=== PATIENT | male | born 1980 | race Two or more races ===

== ENCOUNTER 2020-07-30 12:02 | Emergency (ER) | payer OTHER ==
[~2020-07-30] VITALS: Ht 177.8 cm; Wt 81.6 kg
== END 2020-07-30 15:21 | disposition home or self-care (01) ==
LOC: ER
DX: J40 Bronchitis, not specified as acute or chronic (principal)

== ENCOUNTER 2020-11-08 10:35 | Outpatient (CLI) | payer OTHER | END 2020-11-08 10:39 | disposition home or self-care (01) | LOC: RAD 10:35 | DX: R05 Cough (principal); J20.9 Acute bronchitis, unspecified; A37.90 Whooping cough, unspecified species without pneumonia ==

== ENCOUNTER 2021-04-23 22:54 | Emergency (ER) | payer OTHER ==
[~2021-04-23] VITALS: Ht 177.8 cm; Wt 86.2 kg
[2021-04-24] MEDS ORDERED: PEPCID AC20 MG PO (03:01)
[2021-04-24] MEDS ORDERED: PROTONIX20 MG PO (03:01)
[2021-04-24] MEDS ORDERED: CARAFATE1 GM PO (03:01)
[2021-04-24] MEDS ORDERED: MEDROLPACK PO (03:01)
[2021-05-02] MEDS ORDERED: ACETAMINOPHEN650 M2 (11:39)
== END 2021-04-24 03:28 | disposition home or self-care (01) ==
LOC: ER 22:54
DX: K20.80 Other esophagitis without bleeding (principal); R07.89 Other chest pain

== ENCOUNTER 2021-05-28 09:35 | Outpatient (CLI) | payer OTHER ==
[~2021-05-28 09:35] MED LIST: ACETAMINOPHEN650 M2; CARAFATE1 GM PO; MEDROLPACK PO; PEPCID AC20 MG PO; PROTONIX20 MG PO
== END 2021-05-28 09:41 | disposition home or self-care (01) ==
LOC: SONOGRAMA 09:35
PROVIDERS: ATTEND Specialist
DX: E03.8 Other specified hypothyroidism (principal)

== ENCOUNTER 2022-01-15 11:56 | Outpatient (CLI) | payer OTHER | END 2022-01-15 12:02 | disposition home or self-care (01) | LOC: SONOGRAMA 11:56 | PROVIDERS: ATTEND Specialist | DX: E03.9 Hypothyroidism, unspecified (principal) ==

== ENCOUNTER 2022-09-16 10:26 | Emergency (ER) | payer OTHER ==
[~2022-09-16] VITALS: Ht 177.8 cm; Wt 86.2 kg
== END 2022-09-16 14:14 | disposition home or self-care (01) ==
LOC: ER 10:26
DX: R17 Unspecified jaundice (principal); Z20.822 Contact with and (suspected) exposure to COVID-19; Z88.6 Allergy status to analgesic agent

== ENCOUNTER 2022-11-25 10:35 | Outpatient (CLI) | payer OTHER | END 2022-11-25 10:50 | disposition home or self-care (01) | LOC: SONOGRAMA 10:35 | PROVIDERS: ATTEND Specialist | DX: N43.41 Spermatocele of epididymis, single (principal) ==

== ENCOUNTER 2022-12-24 15:01 | Outpatient (CLI) | payer OTHER | END 2022-12-24 15:10 | disposition home or self-care (01) | LOC: SONOGRAMA 15:01 | PROVIDERS: ATTEND Specialist | DX: E03.9 Hypothyroidism, unspecified (principal) ==

== ENCOUNTER 2024-07-01 12:24 | Outpatient (CLI) | payer OTHER | END 2024-07-01 12:28 | disposition home or self-care (01) | LOC: SONOGRAMA 12:24 | PROVIDERS: ATTEND Specialist | DX: E03.9 Hypothyroidism, unspecified (principal) ==

== ENCOUNTER 2024-07-15 08:08 | Outpatient (CLI) | payer OTHER | END 2024-07-15 08:09 | disposition home or self-care (01) | LOC: NUCLEAR 08:08 | PROVIDERS: ATTEND Specialist | DX: I82.409 Acute embolism and thrombosis of unspecified deep veins of unspecified lower extremity (principal) ==

== ENCOUNTER → 2024-07-29 07:55 | Outpatient (CLI) | payer OTHER | END | disposition home or self-care (01) | LOC: NUCLEAR 07:00 | PROVIDERS: ATTEND Specialist | DX: E21.0 Primary hyperparathyroidism (principal); D35.1 Benign neoplasm of parathyroid gland ==